=== PATIENT | male | born 1950 | race Caucasian/White ===

== ENCOUNTER 2017-12-03 11:31 | Day surgery (SDC) | payer OTHER, SELFPAY ==
[~2017-12-03 11:31] MED LIST: CHLO25B PO; CHOL10002 PO; DOCU100 PO; HYDMOR2 PO; INDO50 PO; LOSA50 PO; PANT40 PO; TERA5 PO
== END 2017-12-03 22:36 | disposition home or self-care (01) ==
LOC: US 11:31
DX: N43.3 Hydrocele, unspecified (principal)
CPT/HCPCS: 76870